=== PATIENT | male | born 1945 | race Caucasian/White ===

== ENCOUNTER → 2016-05-25 | Outpatient (CLI) | payer MEDICARE, OTHER | END | disposition home or self-care (01) | LOC: GMAJ 14:34 | PROVIDERS: ATTEND Family Medicine | DX: Z12.5 Encounter for screening for malignant neoplasm of prostate (principal); M25.50 Pain in unspecified joint | CPT/HCPCS: 84550; 85651; 86038; 86060; 86140; 86431; G0103 ==

== ENCOUNTER → 2018-08-28 | Outpatient (CLI) | payer MEDICARE, OTHER ==
--- NOTE | 2018-08-28 15:56 | US ---
US THYROID CLINICAL STATEMENT: THYROID NODULE. COMPARISON: None TECHNIQUE: Transcutaneous scanning, grayscale and Doppler modes. FINDINGS: Size right thyroid lobe: 4.6 x 2.3 x 2.2 cm Size left thyroid lobe: 5.5 x 2.4 x 2.1 cm Size isthmus: 0.27 cm Estimated total number of nodules greater than or equal to 1 cm: 2 . The gland is heterogeneous. Nodule 1: Size: 1.5 x 1.5 x 1.4 cm Location: Right Lower Composition: solid or almost completely solid: 2 points Echogenicity: hypoechoic: 2 points Shape: taller than wide: 3 points Margins: ill-defined: 0 points Echogenic foci: none: 0 points ACR Total Points: >/= 7; ACR TI-RADS risk category: TR5 - highly suspicious nodule. Nodule 2: Size: 0.8 x 0.5 x 0.5 cm Location: Right Upper Composition: solid or almost completely solid: 2 points Echogenicity: hypoechoic: 2 points Shape: wider than tall: 0 points Margins: smooth: 0 points Echogenic foci: none: 0 points ACR Total Points: 4; ACR TI-RADS risk category: TR4 - moderately suspicious nodule. Nodule 3: Size: 1.3 x 1.3 x 1.4 cm Location: Left Lower Composition: solid or almost completely solid: 2 points Echogenicity: hypoechoic: 2 points Shape: taller than wide: 3 points Margins: smooth: 0 points Echogenic foci: none: 0 points ACR Total Points: >/= 7; ACR TI-RADS risk category: TR5 - highly suspicious nodule. Nodule 4: Size: 0.6 x 0.7 x 0.4 cm Location: Isthmus Mid Composition: solid or almost completely solid: 2 points Echogenicity: hypoechoic: 2 points Shape: wider than tall: 0 points Margins: smooth: 0 points Echogenic foci: none: 0 points ACR Total Points: 4; ACR TI-RADS risk category: TR4 - moderately suspicious nodule. No dominant solid mass or distinct cyst in the surrounding soft tissues. IMPRESSION: 1. Nodule 1: ACR TI-RADS 2017 Category TR5. Recommend: Ultrasound-guided fine needle aspiration. Recommendations based upon [facility] recommendations and ACR TI-RADS 2017 guidelines. Please see below*. 2. Nodule 2: ACR TI-RADS 2017 Category TR4. Recommend: No further follow-up. 3. Nodule 3: ACR TI-RADS 2017 Category TR5. Recommend: Ultrasound-guided fine needle aspiration 4. Nodule 4: ACR TI-RADS 2017 Category TR4. Recommend: No further follow-up. Soft tissue around the gland is unremarkable. *ACR TI-RADS 2017 Recommendations: TR1: No FNA or follow up TR2: No FNA or follow up TR3: FNA if >/= 2.5 cm, follow up if 1.5 - 2.4 cm in 1, 3, and 5 years TR4: FNA if >/= 1.5 cm, follow up if 1.0 - 1.4 cm in 1, 2, 3, and 5 years TR5: FNA if >/= 1.0 cm, follow up if 0.5 - 0.9 cm every year for 5 years ACR TI-RADS recommends that no more than two nodules with the highest ACR TI-RADS total point should be biopsied and no more than four nodules should be followed. These recommendations do not apply to patients with increased risk for thyroid cancer or patients with symptomatic thyroid disease. Electronically signed by: Gene Wing MD 08/28/2018 3:54 PM CDT
== END ==
LOC: US 08:14
PROVIDERS: ATTEND Family Medicine
DX: E04.2 Nontoxic multinodular goiter (principal)